=== PATIENT | male | born 1980 | race Caucasian/White ===

== ENCOUNTER 2016-11-26 13:55 | Emergency (ER) | payer SELFPAY ==
--- NOTE | 2016-11-28 03:45 | ER ---
ADMIT: 11/26/2016 RM/LOC: ER [facility] MR#: [id number] [facility] [address] [place] [id number] CASEY PEDROZA [address] [facility] [address] Emergency Room Report SEX: M AGE: 36 : 1980 DATE: 11/26/2016 TIME: 1355 hours. Please refer to my T-sheet for complete H and P. Briefly, patient is a 36- year-old, who comes in for chest pain, left sided. He says it has been there 2 to 3 days, it kind of wax and wanes. He does some lifting but does know that he hurt it. He does smoke a pack of cigarettes a day. PHYSICAL EXAMINATION: VITAL SIGNS: Blood pressure 113/73, pulse 68, respirations 18, temp 98, and saturating 98%. GENERAL: He is no acute distress. HEENT: Atraumatic and normocephalic. Pupils equal, round, and react to light. Extraocular muscles intact. TMs clear. Throat clear. NECK: Soft, supple. LUNGS: Clear. HEART: Regular. CHEST WALL: He has a little bit reproducible chest wall pain in the anterior. EMERGENCY DEPARTMENT COURSE: Chest x-ray showed no acute findings. EKG was sinus rhythm, rate 60, no changes. I gave him Toradol 60 IM, he was improved. I had a long discussion. He was ready for discharge. ASSESSMENT: 1. Atypical chest pain. 2. Nicotine abuse. PLAN: Stop smoking. Motrin 800 t.i.d. p.r.n., Tylenol, return if worse. Follow up with Dr. Duff in 2-3 days if not better. Rick Abdi MD/ saniya JOB #: [id number] CC: Rick Abdi MD, Attending Physician
== END 2016-11-26 15:15 | disposition home or self-care (01) ==
LOC: ER 13:55
DX: R07.89 Other chest pain (principal); F17.210 Nicotine dependence, cigarettes, uncomplicated; Z79.899 Other long term (current) drug therapy